=== PATIENT | male | born 1990 | race Caucasian/White ===

== ENCOUNTER 2016-07-11 04:03 | Observation (INO) | payer BC ==
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
[2016-07-11] MEDS ORDERED: Clindamycin Phosphate in D5W 600 MG in Premix Bag 1 BAG IV SCH ×2 (05:00)
[2016-07-11] MEDS ORDERED: Sodium Chloride 0.9% 1,000 ML ONE (05:30)
[2016-07-11] MEDS ORDERED: Sodium Chloride 0.9% 1,000 ML IV SCH (05:38)
[2016-07-11] MEDS ORDERED: Ondansetron 4 MG/2 ML SDV IV PRN (05:38)
[2016-07-11] MEDS: HYDROmorphone 1 MG/ML Syringe IVPUSH PRN ×3 (05:51→09:25)
[2016-07-11 06:37] VITALS: BP 144/73
[2016-07-11] MEDS ORDERED: Acetaminophen/oxyCODONE 325-5 MG Tab PO ONE (08:00)
[2016-07-11 08:08] LABS: CHLORIDE,CL 106 mEq/L (98-106); SODIUM,NA 143 mEq/L (136-145)
--- NOTE | 2016-07-11 09:26 | PCM.PN ---
- General Info Date of Service: 07/11/16 (Father is here to sisal picker the patient. I spoke with Dr. Ortiz at [facility] who agreed to take the patient in transfer by pov. Patient is stable at this time and his pain is well controlled.) Admission Dx/Problem (Free Text): Open Mandible fracture Functional Status: Reports: pain controlled - Review of Systems General: Reports: No Symptoms HEENT: Reports: no symptoms Pulmonary: Reports: no symptoms Cardiovascular: Reports: No Symptoms Gastrointestinal: Reports: No symptoms Musculoskeletal: Reports: no symptoms Skin: Reports: no symptoms Neurological: Reports: No Symptoms Psychiatric: Reports: no symptoms - Patient Data Vitals - most recent: Last Vital Signs Temp 98.8 F 07/11/16 05:38 Pulse 114 H 07/11/16 05:38 Resp 20 07/11/16 05:38 BP 144/73 H 07/11/16 05:38 Pulse Ox 97 07/11/16 05:38 Weight - most recent: 190 lb Lab Results last 24 hrs: Laboratory Results - last 24 hr 07/11/16 07/11/16 Range/Units 07:30 07:30 WBC 19.7 H (5.0-10.0) 10^3/uL RBC 5.04 (4.50-6.00) 10^6/uL Hgb 15.5 (14.0-18.0) g/dL Hct 43.0 (40.0-54.0) % MCV 85.3 (82.0-94.0) fL MCH 30.8 (27.0-32.0) pg MCHC 36.0 (33.0-38.0) g/dL RDW Coeff of Keerthi 12.9 (11.0-15.0) % Plt Count 206 (150-400) 10^3/uL Neut % (Auto) 81.4 (35-85) % Lymph % (Auto) 10.8 (10-55) % Baldwin % (Auto) 7.5 (0-16) % Eos % (Auto) 0.2 (0-5) % Baso % (Auto) 0.1 (0-3) % Neut # (Auto) 16.06 H (1.80-7.00) 10^3/uL Lymph # (Auto) 2.13 (1.00-4.80) 10^3/uL Baldwin # (Auto) 1.48 H (0.00-0.80) 10^3/uL Eos # (Auto) 0.04 (0.00-0.45) 10^3/uL Baso # (Auto) 0.02 10^3/uL Sodium 143 (136-145) mEq/L Potassium 3.8 (3.5-5.0) mEq/L Chloride 106 (98-106) mEq/L Carbon Dioxide 29 (21-32) mmol/L BUN 17 (7-18) mg/dL Creatinine 1.1 (0.7-1.3) mg/dL Est Cr Clr Drug Dosing 117.03 mL/min Estimated GFR (MDRD) > 60 (>=60) mL/min Glucose 108 H (75-99) mg/dL Calcium 8.8 (8.4-10.1) mg/dL Med Orders - Current: Current Medications Hydromorphone HCl (Dilaudid) 1 mg IVPUSH Q2H PRN PRN Reason: Pain (severe 7-10) Last Admin: 07/11/16 08:01 Dose: 1 mg Clindamycin Phosphate 600 mg/ (Premix) 50 mls @ 100 mls/hr IV Q8H [facility] Last Admin: 07/11/16 05:53 Dose: 100 mls/hr Sodium Chloride (Normal Saline) 1,000 mls @ 100 mls/hr IV ASDIRECTED [facility] Last Admin: 07/11/16 05:50 Dose: 100 mls/hr Ondansetron HCl (Zofran) 4 mg IV Q4H PRN PRN Reason: Nausea/Vomiting Last Admin: 07/11/16 05:51 Dose: 4 mg Discontinued Medications Sodium Chloride (Normal Saline) Confirm Administered Dose 1,000 mls @ as directed .ROUTE .STK-MED ONE Stop: 07/11/16 05:31 Last Admin: 07/11/16 05:53 Dose: Not Given - Problem List Review Problem List Initiated/Reviewed/Updated: Yes - My Orders Last 24 Hours: My Active Orders 07/11/16 05:00 Clindamycin Phosphate in D5W [Cleocin in D5W] 600 mg Premix Bag 1 bag IV Q8H 07/11/16 05:21 Resuscitation Status Routine 07/11/16 05:38 Intake and Output [RC] QSHIFT Oxygen Therapy [RC] .PRN Vital Signs [RC] Q8H HYDROmorphone [Dilaudid] 1 mg IVPUSH Q2H PRN Ondansetron [Zofran] 4 mg IV Q4H PRN Sodium Chloride 0.9% [Normal Saline] 1,000 ml IV ASDIRECTED 07/11/16 Breakfast Nothing per Oral Now Diet [DIET]
[2016-07-11] MEDS ORDERED: Take Home: Acetaminophen/oxyCODONE 325-5 MG, 2 Tab Pack PO ONE (09:31)
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
== END 2016-07-11 09:55 ==
LOC: CC.ED 04:03 → CC.MS 05:15
PROVIDERS: ADMIT Nurse Practitioner Family; ATTEND Nurse Practitioner Family
DX: S02.69XB Fracture of mandible of other specified site, initial encounter for open fracture (principal); Y04.0XXA Assault by unarmed brawl or fight, initial encounter; Z79.899 Other long term (current) drug therapy; Z88.2 Allergy status to sulfonamides
CPT/HCPCS: 36415; 70486; 80048; 85025; 96361; 96365; 96375; 99284; A9270; G0378; J1170; J2405; J7030